=== PATIENT | male | born 2000 | race Caucasian/White ===

== ENCOUNTER 2024-08-24 15:02 | Emergency (ER) | payer SELFPAY ==
--- NOTE | ~2024-08-24 | XR_ITS ---
CLINICAL HISTORY: dorsal lateral tenderness 3 view left foot Comparison: None Findings: Bones intact. No dislocations. No significant arthritic change or erosions. No ankle effusion. No radiopaque foreign body. IMPRESSION: 1. No acute findings. This document has been electronically signed by: Filipe Allison MD on 08/24/2024 17:07:15
--- NOTE | ~2024-08-24 | XR_ITS ---
CLINICAL HISTORY: lateral tenderness and swelling 2 view left ankle Comparison: None Findings: Bones intact. No dislocations. No significant arthritic change or erosions. No ankle effusion. No radiopaque foreign body. There is lateral soft tissue swelling. IMPRESSION: 1. Lateral soft tissue swelling. Correlate for soft tissue injury. This document has been electronically signed by: Filipe Allison MD on 08/24/2024 17:06:36
[2024-08-24 15:17] VITALS: BP 159/84; PULSE 90; RESP 20; TEMP 36.4; O2SAT 97; BMI 38.7
--- NOTE | 2024-08-24 15:17 | ED.GENADULT ---
HPI - General Adult General Chief complaint: Extremity Injury, Lower Stated complaint: ?sprained left ankle Time Seen by Provider: 08/24/24 17:11 Source: patient Mode of arrival: ambulatory Limitations: no limitations History of Present Illness ED Provider: Юл[facility] narrative: Patient is a 34-year-old male presenting with complaint of left lateral ankle pain. Twisted it on uneven sidewalk while walking to work yesterday. Denies weakness, numbness, tingling. States that he has to walk around constantly at work and doing this last night worsened his pain and swelling. complaint: left ankle pain Onset (ago): hour(s) Location: left and lower extremity Severity: moderate Quality: aching Treatments prior to arrival: NSAID Related Data Previous Rx's ?Medication ?Instructions ?Recorded ibuprofen 600 mg tablet 600 mg PO Q6H PRN pain #20 tabs 08/24/24 Allergies Allergy/AdvReac Type Severity Reaction Status Date / Time No Known Allergies Allergy Verified 08/24/24 15:20 Review of Systems Review of Systems: As per HPI Yes all other systems are reviewed and are negative Constitutional: Constitutional: Reports as per HPI Physical Exam ED Vital Signs: Vital Signs - 24 hr 08/24/24 15:17 Temperature 97.5 F Pulse Rate 90 Respiratory Rate 20 Blood Pressure 159/84 H Pulse Oximetry 97 Oxygen Delivery Method Room Air BMI result Body Mass Index 38.7 Vital signs have been reviewed and appear to be correct. Blood pressure elevated. Heart rate normal. Respiratory rate normal. Temperature normal. Oxygen saturation normal. Const General: cooperative, healthy appearing and no acute distress Orientation/consciousness: oriented to person, oriented to place, oriented to time and patient oriented x3 Limitations: no limitations HENMT Head: Yes normocephalic and Yes atraumatic Ears: external ears normal General nose exam: Normal external nose present Face and sinus: Yes face symmetric Mouth: oropharynx normal and moist mucous membranes Throat: Yes uvula midline Eyes Pupils: Equal, round and reactive pupils present Neck Neck: Yes normal visual inspection and Yes supple Resp Effort & Inspection: normal respiratory effort and able to speak in complete sentences Auscultation: clear to auscultation bilaterally Cardio Rate: regular rate Rhythm: regular rhythm Heart sounds: S1 normal heart sound present and S2 normal heart sound present GI Palpation (GI): Soft to palpation and nontender Auscultation: normoactive bowel sounds General: Yes no CVA tenderness Back/Spine/Pelvis Back: no CVA tenderness Skin General skin exam: elasticity normal and turgor normal Neuro General: oriented to person, oriented to place, oriented to time, patient oriented x3, moves all extremities, no focal motor deficits and CN's II-XI intact bilaterally Cranial nerves: Yes Equal, round and reactive pupils present Cognition (Neuro): normal cognition Extrem General: Yes full ROM, Yes no pedal edema and Yes no calf tenderness Left lower extremity: ankle Details: tenderness Location: of the lateral malleolus, swelling Details: laterally and normal ROM; no ecchymosis and foot Details: vascular exam Details: dorsalis pedis pulse present, posterior tibial pulse present and normal capillary refill Psych Mental Status: mental status grossly normal Affect: normal affect Thought process: Normal thought process present Course Course Course Narrative: This is a rapid medical exam performed by Roel Redman NP: Additional HPI, ROS, PE not included below will be deferred to primary provider. Patient is a 34-year-old male presenting with complaint of left lateral ankle pain. Twisted it on uneven sidewalk while walking to work yesterday. Plan: xrays Medical Decision Making Medical Decision Making [facility] Narrative: Patient is a 34-year-old male presenting with complaint of left lateral ankle pain. On exam patient is awake, A+Ox3, VS WNL, afebrile, normal neurological exam without focal deficits, physical exam findings as above. Given reported symptoms and physical exam findings, initial differential includes but is not limited to left ankle strain, sprain, fracture. Unlikely dislocation. X-ray ankle and foot notable for no acute fractures or dislocation. My interpretation is in agreement with the radiologist's interpretation. Results discussed with patient and all questions answered. Patient provided with air splint in the emergency department. Advised him to keep foot elevated while at rest, alternate Tylenol and ibuprofen, apply ice intermittently. Return precautions discussed with patient. Patient verbalized understanding of and agreement with plan. Differential Diagnosis Differential Diagnoses: The differential diagnosis associated with the presentation includes As per MDM Independent Interpretation I performed an independent interpretation of an: Plain X-Ray Interpretation: No acute fracture left ankle or foot Radiology Impression Discussion of test interpretation with radiology: I have reviewed the radiologist's reading. Radiologist Impression: 3 view left foot Comparison: None Findings: Bones intact. No dislocations. No significant arthritic change or erosions. No ankle effusion. No radiopaque foreign body. IMPRESSION: 1. No acute findings. 2 view left ankle Comparison: None Findings: Bones intact. No dislocations. No significant arthritic change or erosions. No ankle effusion. No radiopaque foreign body. There is lateral soft tissue swelling. IMPRESSION: 1. Lateral soft tissue swelling. Correlate for soft tissue injury. External Record Review External record reviewed: Inpatient record, Office record and Outpatient record Prescription Management I considered prescription management with: Pain Medication Discharge Plan Discharge Clinical Impression: Ankle sprain and strain Patient Disposition: Home, Self-Care Instructions: Ankle Sprain (DC), Ankle Stirrup Splint (ED), R.I.C.E. Treatment (ED), Ice Pack Application (ED) Additional Instructions: You have been evaluated in the emergency department today for ankle pain. Your evaluation did not find evidence of medical conditions requiring emergent intervention at this time. We have provided a splint for you to use while your ankle heals. Please rest, ice, and elevate your ankle, and resume normal activities as tolerated. We recommend you take 600mg ibuprofen every 6 hours or 650mg Tylenol every 6 hours as needed for pain. If needed you can alternate these medications as they take 1 medication every 3 hours. For instance at noon take ibuprofen, then at 3:00 p.m. take Tylenol, then at 6:00 p.m. take ibuprofen. Please schedule an appointment for follow-up with your primary care provider this week. Return to the emergency department if you experience worsening pain, numbness, tingling, change of color in your foot, or any other concerning symptoms. Prescriptions: New ibuprofen 600 mg tablet 600 mg PO Q6H PRN (Reason: pain) Qty: 20 0RF Referrals: [facility] [Provider Group] Stand Alone Forms: Work/School Release Print Language: Chadian
[2024-08-24 17:14] VITALS: BP 136/93; PULSE 78; RESP 20; TEMP 36.7; O2SAT 97
[2024-08-24 17:28] VITALS: BP 136/93; PULSE 78; RESP 20; TEMP 36.7; O2SAT 97
== END 2024-08-24 17:28 | disposition home or self-care (01) ==
PROVIDERS: Emergency Provider Emergency Medicine
DX: S93.402A Sprain of unspecified ligament of left ankle, initial encounter (principal); S96.912A Strain of unspecified muscle and tendon at ankle and foot level, left foot, initial encounter; X50.1XXA Overexertion from prolonged static or awkward postures, initial encounter; M25.572 Pain in left ankle and joints of left foot; Y93.01 Activity, walking, marching and hiking; Y92.480 Sidewalk as the place of occurrence of the external cause; Y99.9 Unspecified external cause status
CPT/HCPCS: 73600; 73630; 99283

== ENCOUNTER → 2024-08-24 15:21 | Outpatient (BNV) | payer SELFPAY | PROVIDERS: Emergency Provider Emergency Medicine; Visit Provider Specialist | DX: M25.472 Effusion, left ankle (principal); M79.672 Pain in left foot | CPT/HCPCS: 73600; 73630 ==

== ENCOUNTER 2025-03-02 22:11 | Emergency (ER) | payer SELFPAY ==
--- NOTE | 2025-03-02 | ECG_ITS ---
Test Reason : SYNCOPE Blood Pressure : */* mmHG Vent. Rate : 82 BPM Atrial Rate : 82 BPM P-R Int : 144 ms QRS Dur : 102 ms QT Int : 370 ms P-R-T Axes : 70 35 30 degrees QTcB Int : 432 ms Normal sinus rhythm Normal ECG No previous ECGs available Referred By: Generic ED Physician Electronically Signed By: Dave Maya
[2025-03-02 22:36] VITALS: BP 117/76; PULSE 88; RESP 14; TEMP 36.7; O2SAT 98; BMI 39.1
--- NOTE | 2025-03-02 23:02 | ED.GENADULT ---
HPI - General Adult General Chief complaint: Abdominal Pain Stated complaint: passed out today/now burning sensation in stomach Time Seen by Provider: 03/02/25 23:02 History of Present Illness ED Provider: Jeffrey MOODY narrative: The patient is a 25-year-old male who says he is generally in good health. He is on no medications and has no known medical problems. He has not had any hospitalizations in his lifetime that he is aware of. Today was his birthday. He was celebrating his birthday. He had had some marijuana (he smokes almost daily) but he also had some alcohol (he has this much less frequently) and he tried shrooms for the 1st time as well. He says that after taking the alcohol and this rooms he in his friends were hungry and they ate some pizza. Soon after eating the pizza the patient had some upper abdominal pain and felt lightheaded as if you might pass out. He laid down on a bed but did not actually lose consciousness. Ultimately he came to the hospital by [facility] for evaluation. By the time I saw him he felt that his symptoms had entirely resolved. When I am speaking to him he had no headache, no chest pain, no abdominal pain, no nausea. There has been no vomiting. He has no shortness of breath. No pain or swelling in his legs. He is feeling back to normal and is no longer feeling lightheaded. Related Data Previous Rx's ?Medication ?Instructions ?Recorded ibuprofen 600 mg tablet 600 mg PO Q6H PRN pain #20 tabs 08/24/24 Allergies Allergy/AdvReac Type Severity Reaction Status Date / Time No Known Allergies Allergy Verified 03/02/25 22:37 Review of Systems Review of Systems: Yes all other systems are reviewed and are negative [facility] Social History Social History (System 08/27/24 @ 07:33 by Suma Ramirez) Advance Directives: No Advance Directives Information Provided: No Physical Exam ED Vital Signs: Vital Signs - 24 hr 03/02/25 22:36 Temperature 98.1 F Pulse Rate 88 Respiratory Rate 14 Blood Pressure 117/76 Pulse Oximetry 98 Oxygen Delivery Method Room Air BMI result Body Mass Index 39.1 Const Other: The patient is awake and alert, pleasant and cooperative. The patient looks entirely well. Orientation/consciousness: patient oriented x3 HENMT Other: The face is symmetrical. ?Mucous membranes moist. Eyes Other: Pupils are round equal, conjunctivae are clear, extraocular movements intact Neck Neck: Yes normal visual inspection and Yes full ROM Resp Effort & Inspection: normal respiratory effort Auscultation: clear to auscultation bilaterally Cardio Rate: regular rate Rhythm: regular rhythm Heart sounds: S1 normal heart sound present and S2 normal heart sound present GI Other: The abdomen is soft and nontender. No right upper quadrant tenderness. No Paulson's sign Skin Other: The skin is dry and unremarkable Neuro General: patient oriented x3, tone normal, moves all extremities, no focal motor deficits and CN's II-XI intact bilaterally Extrem Other: There is no calf swelling or tenderness. No asymmetry. No peripheral edema. Medical Decision Making Medical Decision Making [facility] Narrative: The patient is a 25-year-old male who had some upper abdominal discomfort after eating pizza. Before that the patient had had some marijuana, alcohol, and ?shrooms. ? The patient had a near syncopal episode. I suspect that the patient probably had some gastritis type discomfort and then probably had an episode of vasovagal near-syncope. The patient's symptoms resolved spontaneously so that when I saw the patient they were asymptomatic. The abdomen is benign. I performed an informal bedside ultrasound of the right upper quadrant. There was a lot of bowel gas and it was difficult to definitively see the gallbladder. There was no obvious distended gallbladder. There was no tenderness with the probe in the region of the liver. Since the patient's symptoms have resolved entirely on their own I do not think the patient requires any further workup. His EKGs normal. He will be advised to be careful with combining substances in the future and to follow up with the regular doctor. He hopes to get insurance through his employer soon and he hopes to get a regular doctor after he gets insurance. He should return if worse. Independent Interpretation I performed an independent interpretation of an: EKG Interpretation: EKG at 2250 shows normal sinus rhythm at 82 beats per minute. It is a normal EKG. Intervals are normal. Discharge Plan Discharge Clinical Impression: Vasovagal near syncope, Upper abdominal pain Patient Disposition: Home, Self-Care Additional Instructions: I think you had what we would call a ?vagal reaction. The use of the alcohol and the mushrooms may have predispose you to this. A vagal reaction has a benign phenomenon in which a person can feel very lightheaded, as if they might faint. This is a temporary and self correcting problem. Your EKG is normal. At this point I do not think any additional evaluation is required since you are feeling back to normal. Please be careful with alcohol and other substances in the future, especially combining them. Please work on getting a primary care doctor. Return to the emergency room if you feel significantly worse. Prescriptions: No Action ibuprofen 600 mg tablet 600 mg PO Q6H PRN (Reason: pain) Qty: 20 0RF Referrals: [facility] [place] Primary Care, [place] [Provider Group, Internal Medicine] [facility] [place] Primary Care, [facility] [Provider Group, Primary Care] Kayy Torrez MD [Physician, Internal Medicine] Vcienta Pickens MD [Primary Care Provider, Family Practice] Print Language: South Korean
[2025-03-02 23:33] VITALS: BP 124/63; PULSE 85; RESP 20; TEMP 36.8; O2SAT 100
== END 2025-03-02 23:34 | disposition home or self-care (01) ==
PROVIDERS: Emergency Provider Emergency Medicine; PCP Family Medicine
DX: R55 Syncope and collapse (principal); R10.10 Upper abdominal pain, unspecified
CPT/HCPCS: 93005; 99283

== ENCOUNTER → 2025-03-02 22:50 | Outpatient (BNV) | payer SELFPAY | PROVIDERS: Emergency Provider Emergency Medicine; PCP Family Medicine; Visit Provider Internal Medicine Cardiovascular Disease | DX: R55 Syncope and collapse (principal) | CPT/HCPCS: 93010 ==